=== PATIENT | female | born 2000 | race Caucasian/White ===

== ENCOUNTER 2021-09-06 15:07 | Emergency (ER) | payer MEDICAID, SELFPAY ==
--- NOTE | 2021-09-06 15:13 | ED.URI ---
HPI - URI/Sore Throat General Chief Complaint: Upper Respiratory Infection Stated Complaint: Sore Throat/Congestion Time Seen by Provider: 09/06/21 15:24 Source: patient and RN notes reviewed Mode of arrival: ambulatory Limitations: no limitations History of Present Illness HPI Narrative: 21-year-old female presents concern for sore throat, nasal congestion. Reports symptoms started 2 days ago, reports her significant other has the same symptoms. Reports she is used Tylenol with little relief. She denies cough, shortness of breath, fever chills, sweats. MD elicited complaint: sore throat Related Data Home Medications Medication Instructions Recorded Confirmed norgestimate-ethinyl estradiol tablet 11/18/19 [Estarylla] Allergies Allergy/AdvReac Type Severity Reaction Status Date / Time gluten Allergy Gastrointestinal Verified 09/06/21 15:38 Upset Review of Systems Review of Systems: CONSTITUTIONAL: Denies malaise, chills, sweats, or fever. EYES: Denies visual changes, redness, or discharge. ENT: Reports rhinorrhea, congestion, and sore throat. Reports sinus pain, otalgia CARDIOVASCULAR: Denies chest pain, palpitations, or edema. RESPIRATORY: Denies cough. Denies dyspnea. GASTROINTESTINAL: Denies abdominal pain, nausea, vomiting, diarrhea SKIN: Denies rash or itching. MUSCULOSKELETAL: Denies myalgia. NEUROLOGIC: Denies headache. All systems reviewed & are unremarkable except as noted in HPI and below PMFSH Comments At time of signature, agree with nursing past medical, surgical, social and family history. There is no relevant family history pertinent to the presenting complaint Exam Narrative: GENERAL: Well-appearing, well-nourished, and in no acute distress. HEAD: Normocephalic EYES: PERRLA, conjunctivae clear ENT: Nares clear, clear discharge. Mucous membranes moist. TM pearly saenz with sharp light reflex bilaterally; no tragal tenderness. Oropharynx erythematous without lesions. Tonsils not enlarged and without exudate, no drooling, no hoarseness, no trismus, uvula midline. NECK: Supple. No lymphadenopathy CHEST: Clear to auscultation, breath sounds equal. No wheezing, rhonchi, rales, or stridor. No respiratory distress, speaks in full sentences. HEART: Regular rate and rhythm. No murmur heard. SKIN: Warm, dry, no rash. NEURO: Alert and oriented x3. PSYCH: Normal mood and affect Course Course Emergency Course: Patient is aware of diagnosis, understands and agrees to treatment plan. Anticipatory guidance given. Patient agrees to follow-up as directed and is aware of reasons to seek care at the emergency department. Portions of this record may have been created with voice recognition software Vital Signs Vital signs: Reviewed. MDM - URI/Sore Throat MDM Narrative Medical decision making narrative: Differential diagnosis considered: Prado virus, strep pharyngitis, allergic rhinitis, upper respiratory tract infection, sinusitis, rhinosinusitis, nasopharyngitis. viral pharyngitis, otitis media, otitis externa, pneumonia, bronchitis, viral cough syndrome, viral syndrome, and influenza. Exam findings show no acute concerns or changes; patient is non-toxic appearing and is in no distress. Patient is appropriate for outpatient treatment and follow-up. Lab Data Attestation: I reviewed the patient's lab results. Critical Care Time Critical Care Time Critical Care Time: No Discharge Plan Discharge Clinical Impression: Upper respiratory infection Qualifiers: URI type: unspecified viral URI Qualified Code(s): J06.9 - Acute upper respiratory infection, unspecified Patient Disposition: Hospice - Home Condition: Stable Instructions: Upper Respiratory Infection (ED) Additional Instructions: Your rapid strep swab was negative today at [facility]. A throat culture will be sent to the laboratory for further testing. If the test is positive, you will receive a phone call within 48 hours and an approp
[2021-09-06 15:14] VITALS: BP 92/75; PULSE 94; RESP 18; TEMP 36.9; O2SAT 99
== END 2021-09-06 15:55 | disposition home or self-care (01) ==
PROVIDERS: Emergency Provider Nurse Practitioner; PCP Pediatrics
DX: J02.9 Acute pharyngitis, unspecified (principal); J06.9 Acute upper respiratory infection, unspecified
CPT/HCPCS: 87081; 87880; 99213; G0463

== ENCOUNTER 2022-05-14 07:09 | Emergency (ER) | payer MEDICAID, SELFPAY ==
--- NOTE | 2022-05-14 07:21 | PC.NURSE ---
0718 industrial psychology professor contacted Rosana @ [facility]. 0719 industrial psychology professor contacted [facility], no answer after waiting 10 mins. Will attempt to reach out to them again. 07Will Rodriguez with Meds returned call. Her eta is 35-40 minutes. She will also attempt a phone number she has for the [facility] department.
[2022-05-14 07:23] VITALS: BP 119/73; PULSE 92; RESP 18; TEMP 36.5; O2SAT 100
--- NOTE | 2022-05-14 08:17 | PC.NURSE ---
0816 [facility] will send someone out with size Medium clothing.
--- NOTE | 2022-05-14 10:30 | PC.NURSE ---
Patient refusing an assessment from the PCP at this time, requesting to leave facility AMAKaren CASTRO nurse notified RN and PCP of this and explained to patient her concerns of leaving.
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
== END 2022-05-14 11:15 | disposition left against medical advice (07) ==
LOC: ANHED 11:28
PROVIDERS: PCP Pediatrics
DX: Z04.41 Encounter for examination and observation following alleged adult rape (principal)
CPT/HCPCS: 99199

== ENCOUNTER 2022-05-16 11:00 | Emergency (ER) | payer MEDICAID, SELFPAY ==
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
[2022-05-16 12:10] VITALS: BP 131/85; PULSE 94; O2SAT 100
[2022-05-16 13:37] LABS: Alanine Aminotransferase 24 U/L (6-35); Albumin Level 4.8 g/dL (3.5-5.1); Alkaline Phosphatase 98 U/L (38-126); Anion Gap 12 mmol/L (8-16); Aspartate Amino Transferase 29 U/L (14-36); Bilirubin,Total 0.7 mg/dL (0.2-1.3); Blood Urea Nitrogen 12 mg/dL (7-17); Calcium 9.6 mg/dL (8.4-10.2); Carbon Dioxide 23 mmol/L (22-30); Chloride 105 mmol/L (98-107); Estimated Glomerular Filt Rate > 60; Glucose 103 mg/dL (65-110); Sodium 140 mmol/L (137-145)
[2022-05-16 14:18] LABS: HIV 1/2 Ab P24 Ag Result Negative (Negative)
[2022-05-16] MEDS: levonorgestreL 1.5 MG TABLET PO (17:12)
[2022-05-16] MEDS: ONDANSETRON HCL ODT 4 MG TABLET PO (17:12)
[2022-05-16] MEDS: metroNIDAZOLE 250 MG TABLET 500 MG PO (17:12)
[2022-05-16] MEDS: EMTRICITABINE-TENOFOVIR 100 MG-150 MG TABLET 1 TAB PO ×2 (17:13)
[2022-05-16] MEDS: RALTEGRAVIR 400 MG TABLET PO (17:13)
[2022-05-16] MEDS: DOXYCYCLINE HYCLATE 100 MG TABLET PO (17:13)
[2022-05-16] MEDS: LIDOCAINE HCL 1% LOCAL INJ 20 ML VIAL (17:14)
[2022-05-16] MEDS: cefTRIAXone 1 GM VIAL 0.5 GM IM (17:14)
== END 2022-05-16 18:47 | disposition home or self-care (01) ==
LOC: ANHED 18:19
PROVIDERS: Physician Assistant; Emergency Provider Emergency Medicine; PCP Pediatrics
DX: Z04.41 Encounter for examination and observation following alleged adult rape (principal); S20.212A Contusion of left front wall of thorax, initial encounter; S20.01XA Contusion of right breast, initial encounter; X58.XXXA Exposure to other specified factors, initial encounter
CPT/HCPCS: 36415; 71046; 80053; 81025; 86703; 87491; 87591; 87808; 96372; 99285; A9270; G0432; J0696

== ENCOUNTER 2023-06-26 15:18 | Emergency (ER) | payer OTHER, SELFPAY ==
[2023-06-26 15:28] VITALS: BP 116/71; PULSE 109; RESP 18; TEMP 37.2; O2SAT 99
--- NOTE | 2023-06-26 15:31 | ED.EAR ---
HPI - Ear Problem General Chief complaint: Ear Stated complaint: Left Ear Pain History of Present Illness HPI Narrative: PATIENT PRESENTS WITH LEFT EAR PAIN. NO DRAINAGE FROM HER EAR DENIES ANY UPPER RESPIRATORY SYMPTOMS PATIENT STATES SHE DID HAD COVID-19 LAST WEEK Related Data Home Medications Medication Instructions Recorded Confirmed sertraline 50 mg tablet (Zoloft) 50 mg PO DAILY 05/14/22 06/26/23 etonogestrel 0.12 mg-ethinyl See Rx Instructions .Route .COMPLEX 06/26/23 06/26/23 estradiol 0.015 mg/24 hr vaginal ring (EluRyng) Allergies Allergy/AdvReac Type Severity Reaction Status Date / Time gluten Allergy Gastrointestinal Verified 06/26/23 15:35 Upset Review of Systems Review of Systems: CONSTITUTIONAL: DENIES CHILLS, OR SWEATS. REPORTS FEVER AND GENERALIZED BODY ACHES EYES: DENIES VISUAL CHANGES, REDNESS, OR DISCHARGE. ENT: DENIES OTALGIA. REPORTS NASAL CONGESTION RUNNY NOSE AND SORE THROAT CARDIOVASCULAR: DENIES CHEST PAIN, PALPITATIONS, OR EDEMA. RESPIRATORY: DENIES DYSPNEA. REPORTS OCCASIONAL COUGH GASTROINTESTINAL: DENIES ABDOMINAL PAIN, NAUSEA, VOMITING, OR DIARRHEA. GENITOURINARY: DENIES DYSURIA OR HEMATURIA. SKIN: DENIES RASH OR ITCHING. MUSCULOSKELETAL: DENIES BACK PAIN, JOINT PAIN, OR MYALGIA. REPORTS GENERALIZED BODY ACHES NEUROLOGIC: DENIES HEADACHE, NUMBNESS, OR WEAKNESS. PSYCHIATRIC: DENIES ANXIETY OR DEPRESSION. PMFSH Comments AT TIME OF SIGNATURE, AGREE WITH NURSING PAST MEDICAL, SURGICAL, SOCIAL AND FAMILY HISTORY. THERE IS NO RELEVANT FAMILY HISTORY PERTINENT TO THE PRESENTING COMPLAINT Exam Narrative: GENERAL: WELL-APPEARING, WELL-NOURISHED, AND IN NO ACUTE DISTRESS. HEAD: NORMOCEPHALIC, ATRAUMATIC. EYES: PERRLA AND EOMI. ENT: NARES CLEAR, NO RHINORRHEA OR EPISTAXIS. MUCOUS MEMBRANES MOIST. ERYTHEMA TO LEFT CANAL BILATERAL TM DULLNESS NECK: SUPPLE. CHEST: CLEAR TO AUSCULTATION. NO RESPIRATORY DISTRESS. HEART: REGULAR RATE AND RHYTHM. NO MURMUR HEARD. NORMAL PERIPHERAL PULSES. ABDOMEN: SOFT, NONTENDER, NONDISTENDED, NORMAL ACTIVE BOWEL SOUNDS. EXTREMITIES: NORMAL RANGE OF MOTION. NO EDEMA. SKIN: WARM, DRY, NO RASH. NEURO: NO FOCAL DEFICITS. ALERT AND ORIENTED X3. MAIK COMA SCALE EYE OPENING: SPONTANEOUS 4 MAIK COMA SCALE MOTOR: OBEYS COMMANDS 6 MAIK COMA SCALE VERBAL: ORIENTED 5 MAIK COMA SCALE TOTAL 15 Course Course Level of Care: Express Care Visit Vital Signs Vital signs: Vital Signs Temperature 37.2 C 06/26/23 15:28 Pulse Rate 109 H 06/26/23 15:28 Respiratory Rate 18 06/26/23 15:28 Blood Pressure 116/71 06/26/23 15:28 Pulse Oximetry 99 06/26/23 15:28 Oxygen Delivery Room Air 06/26/23 15:28 Temperature 37.2 C 06/26/23 15:28 Pulse Rate 109 H 06/26/23 15:28 Respiratory Rate 18 06/26/23 15:28 Blood Pressure 116/71 06/26/23 15:28 Pulse Oximetry 99 06/26/23 15:28 Oxygen Delivery Room Air 06/26/23 15:28 Medical Decision Making Vital Signs Vital Signs: Vital Signs Temperature 37.2 C 06/26/23 15:28 Pulse Rate 109 H 06/26/23 15:28 Respiratory Rate 18 06/26/23 15:28 Blood Pressure 116/71 06/26/23 15:28 Pulse Oximetry 99 06/26/23 15:28 Oxygen Delivery Room Air 06/26/23 15:28 Temperature 37.2 C 06/26/23 15:28 Pulse Rate 109 H 06/26/23 15:28 Respiratory Rate 18 06/26/23 15:28 Blood Pressure 116/71 06/26/23 15:28 Pulse Oximetry 99 06/26/23 15:28 Oxygen Delivery Room Air 06/26/23 15:28 Discharge Plan Discharge Clinical Impression: Otitis media Patient Disposition: Home, Self-Care Condition: Stable Instructions: Antibiotic Form, Ear Infection (ED) Additional Instructions: TAKE MEDICATION PRESCRIBED UNTIL GONE USE FLONASE 2 SPRAYS EACH NOSTRIL TWICE A DAY INCREASE FLUIDS AND MONITOR OUTPUT FOLLOW-UP WITH PRIMARY CARE PROVIDER IN 2-3 DAYS NEEDED IF ANY NEW OR WORSENING SYMPTOMS PLEASE GO TO ER IMMEDIATELY FURTHER EVALU
== END 2023-06-26 15:45 | disposition home or self-care (01) ==
PROVIDERS: Emergency Provider Nurse Practitioner Family
DX: H66.92 Otitis media, unspecified, left ear (principal); F41.9 Anxiety disorder, unspecified; Z86.16 Personal history of COVID-19
CPT/HCPCS: 99213; G0463